=== PATIENT | male | born 1965 | race Caucasian/White ===

== ENCOUNTER 2017-08-30 22:59 | Emergency (ER) | payer OTHER ==
--- NOTE | 2017-08-30 23:28 | Emergency Department Record ---
History of Present Illness - General Chief Complaint: General Stated Complaint: SWOLLEN ARM Time Seen by Provider: 08/30/17 23:21 Source: Patient Mode of Arrival: Ambulatory Limitations: No limitations - History of Present Illness Initial comments: 52 yo male presents to ED for evaluation of swelling to the right face, right upper, and right lower extremity greater than the left lower extremity that began approximately 2 hours ago. Patient reports "tingling" to the right face that is now migrating to the left face, denies focal weakness or numbness on examination. Patient does report of history of HTN and his "water pill" was stopped 3 weeks ago. Patient denies history of DVT in the past. Patient denies throat swelling or difficulty breathing, denies rash or itching symptoms. Onset/Timin -: Hour(s) Location: Right, Upper extremity, Lower extremity Consistency: Constant Improves with: None Worsens with: None Associated Symptoms: Denies other symptoms Treatments Prior to Arrival: None - [place] Coma Scale Eye Response: (4) Open spontaneously Motor Response: (6) Obeys commands Verbal Response: (5) Oriented [place] Total: 15 - Related Data Allergies Allergy/AdvReac Type Severity Reaction Status Date / Time No Known Drug Allergies Allergy Verified 08/30/17 23:05 Travel Screening - Travel/Exposure Within Last 30 Days Have you traveled within the last 30 days?: No - Travel/Exposure Within Last Year Have you traveled outside the [place] in the last year?: No - Additonal Travel Details Have you been exposed to anyone with a communicable illness?: No - Travel Symptoms Symptom Screening: None Review of Systems Constitutional: Denies: Chills, Fever, Malaise, Night sweats Eyes: Denies: Eye discharge, Eye pain ENT: Denies: Congestion, Ear pain, Epistaxis Respiratory: Denies: Cough, Dyspnea Cardiovascular: Reports: Edema. Denies: Chest pain, Dyspnea on exertion Endocrine: Denies: Fatigue, Heat or cold intolerance Gastrointestinal: Denies: Abdominal pain, Nausea, Vomiting Genitourinary: Denies: Incontinence, Retention Musculoskeletal: Denies: Arthralgia, Back pain, Gout Skin: Denies: Bruising, Change in color Neurological: Denies: Abnormal gait, Confusion, Headache, Seizure Psychiatric: Denies: Anxiety Hematological/Lymphatic: Denies: Anemia, Blood Clots Past Medical History - SOCIAL HISTORY Smoking Status: Current every day smoker Alcohol Use: Occasional Drug Use: None - RESPIRATORY Hx Respiratory Disorders: No - CARDIOVASCULAR Hx Cardio Disorders: Yes Hx Hypertension: Yes - NEURO Hx Neuro Disorders: No - GI Hx GI Disorders: No - Hx Genitourinary Disorders: No - ENDOCRINE Hx Endocrine Disorders: No - MUSCULOSKELETAL Hx Musculoskeletal Disorders: No - PSYCH Hx Psych Problems: No - HEMATOLOGY/ONCOLOGY Hx Hematology/Oncology Disorders: Yes Hx Cancer: Yes (shoulder) Family Medical History Any Significant Family History?: No Physical Exam - General General Appearance: Alert, Oriented x3, Cooperative, Mild distress, Anxious Limitations: No limitations - Head Head exam: Atraumatic, Normocephalic, Normal inspection Head exam detail: negative: Abrasion, Contusion, Ashley's sign, General tenderness, Hematoma, Laceration - Eye Eye exam: Normal appearance, Other (mild edema to the right infra-orbital region compared with the left). negative: Conjunctival injection, Periorbital swelling, Periorbital tenderness, Scleral icterus - ENT Ear exam: negative: Auricular hematoma, Auricular trauma Nasal Exam: negative: Active bleeding, Discharge, Dried blood, Foreign body Mouth exam: negative: Drooling, Laceration, Muffled voice, Tongue elevation - Neck Neck exam: Normal inspection. negative: Meningismus, Tenderness - Respiratory Respiratory exam: Normal lung sounds bilaterally. negative: Rales, Respiratory distress, Rhonchi, Stridor - Cardiovascular Cardiovascular Exam: Regular rate, Normal rhythm, Normal heart sounds - GI/Abdominal GI/Abdominal exam: Soft. negative: Rebound, Rigid, Tenderness - Rectal Rectal exam: Deferred - exam: Deferred - Extremities Extremities exam: Normal inspection, Pedal edema, Other (2+ LE edema right LE, 1 + left). negative: Calf tenderness, Tenderness - Back Back exam: Denies: CVA tenderness (R), CVA tenderness (L) - Neurological Neurological exam: Alert, Normal gait, Oriented X3 - Psychiatric Psychiatric exam: Anxious - Skin Skin exam: Normal color. negative: Abrasion Type of lesion: negative: abrasion Course Vital Signs 08/30/17 23:04 Temperature 98 F Pulse Rate [ 57 L Pulse Ox Probe] Respiratory 18 Rate Blood Pressure 168/103 [Left Arm] Pulse Ox 96 - Reevaluation(s) Reevaluation #1: 08/30/17 23:44 EKG: NSR 57 Indeterminate axis, IVCD No acute ST-T wave changes Reevaluation #2: 08/30/17 23:59 Labs reviewed, D-Dimer 0.53, labs are otherwise grossly unremarkable for an acute process. Reevaluation #3: 08/31/17 02:04 CT Chest: No acute process CT Abdomen/Pelvis: No acute process Patient was updated on all CT Imaging and laboratory results, reassessed and reports that his edema is improving. Patient's initial and repeat NIH stroke scale is 0. Patient was encouraged to follow-up with his family doctor for further evaluation in 1-3 days as directed. Medical Decision Making - Lab Data Result diagrams: 08/30/17 23:30 08/30/17 23:30 Disposition Disposition: Discharge Clinical Impression: Edema extremities Disposition: Home, Self-Care Condition: (2) Stable Instructions: Edema (ED) Additional Instructions: Return to ED if your symptoms worsen or if you have any concerns. Follow-up with your family doctor in 1-3 days to determine if you need to restart a diuretic medication. Forms: Patient Portal Access Time of Disposition: 02:07 Quality - Quality Measures Quality Measures: N/A - Blood Pressure Screening Does Patient Have Any of the Following: No Blood Pressure Classification: Hypertensive Reading Systolic Measurement: 138 Diastolic Measurement: 111 Screening for High Blood Pressure: < First Hypertensive BP, F/U Documented > [ [id number]] First Hypertensive Follow-up Interventions: Referral to alternative/primary care provider.
[2017-08-30 23:35] LABS: BASO % 0.3 % (0-6); EOS % 3.7 % (0-6); GRAN % 45.4 % (47-80); HEMATOCRIT 44.9 % (42.0-52.0); HEMOGLOBIN 15.8 gm/dl (14.0-18.0); LYMPH % 42.4 % (16-45); MEAN CELL VOLUME 92.2 fl (81-97); MEAN CORPUSCULAR HEMOGLOBIN 32.4 pg (27-33); MEAN CORPUSCULAR HGB CONC 35.2 g/dl (32-36); MEAN PLATELET VOLUME 10.5 fl (7.4-10.4); MONO % 8.2 % (0-9); PLATELET COUNT 180 K/uL (130-400); RED BLOOD COUNT 4.87 M/uL (4.40-5.70); RED CELL DISTRIBUTION WIDTH 12.9 % (11.5-14.5); WHITE BLOOD COUNT W/O DIFF 5.7 K/uL (4.2-12.2)
[2017-08-30 23:48] LABS: BLOOD UREA NITROGEN 16 mg/dL (6-20); EST GLOMERULAR FILTRATION RATE > 60 mL/min
[2017-08-30 23:49] LABS: TOTAL PROTEIN 6.7 g/dL (6.6-8.7)
[2017-08-30 23:51] LABS: GLUCOSE,RANDOM 113 mg/dL (74-109)
[2017-08-30 23:54] LABS: ALB/GLOB RATIO 1.2 (1.1-1.8); ALBUMIN 3.6 g/dL (4.0-5.0); ALKALINE PHOSPHATASE 180 U/L (40-129)
--- NOTE | 2017-08-31 09:14 | CT SCAN REPORT ---
EXAM: CT OF THE ABDOMEN AND PELVIS WITH CONTRAST HISTORY: ABDOMINAL PAIN, SWELLING IN RIGHT ARM. TECHNIQUE: Sequential axial images were obtained from the diaphragms through the ischiorectal fossa after intravenous administration of 100 ml of Omnipaque 300 contrast material. Sagittal and coronal reformatted images were performed. FINDINGS: The visualized lung bases appear normal. No gross abnormalities within the liver. The gallbladder is contracted. The pancreas and spleen appear normal. The adrenal glands and kidneys appear normal. The small bowel appears normal. The colon appears normal. The urinary bladder appears normal. The osseous structures are normal. IMPRESSION: NO ACUTE ABDOMINAL OR PELVIC DISEASE PROCESS IS APPRECIATED. JOB NUMBER: [id number] MTDD
--- NOTE | 2017-08-31 09:16 | CT SCAN REPORT ---
EXAM: CT OF THE CHEST WITH CONTRAST HISTORY: UPPER EXTREMITY SWELLING. TECHNIQUE: Sequential axial images were obtained from the thoracic inlet through the bilateral adrenal glands after intravenous administration of 100 ml of Omnipaque 300 contrast material. FINDINGS: The mediastinal vasculature enhances normally. The aorta appears normal. The heart and pericardium appear normal. No pericardial effusion. The lung romero are clear. IMPRESSION: NEGATIVE CT OF THE CHEST. NO ACUTE PROCESS. JOB NUMBER: [id number] MTDD
== END 2017-08-31 02:21 | disposition home or self-care (01) ==
LOC: ER 22:59
DX: R60.0 Localized edema (principal); R20.2 Paresthesia of skin; R10.9 Unspecified abdominal pain; I10 Essential (primary) hypertension; F17.210 Nicotine dependence, cigarettes, uncomplicated
CPT/HCPCS: 99284 ×2; 85025; 80053; 85379; 71260; 74177; 93005; 93010; Q9967